=== PATIENT | male | born 1970 | race Caucasian/White ===

== ENCOUNTER 2017-05-22 12:31 | Emergency (ER) | payer OTHER ==
[~2017-05-22] VITALS: Ht 170.2 cm; Wt 78.4 kg
[~2017-05-22 12:31] MED LIST: ADVIL200 MG PO; CEFDINIR300 MG PO; CIPROFLOXACIN H10 ML LEFT EYE; CLINDAMYCIN HC300 MG PO; KEFLEX500 MG PO; NAPROSYN500 MG PO; NORCO 5/3251 TABLET PO; PROVENTIL HFA6.7 GM IH; TAMIFLU75 MG PO; ULTRACET1 TABLET PO
[2017-05-22] MEDS ORDERED: MOTRIN800 MG PO (14:33)
[2017-05-22] MEDS ORDERED: VALIUM5 MG PO (14:34)
[2017-05-22] MEDS ORDERED: NORCO 7.5/321 TABLET PO (14:34)
[2017-05-22 15:26] VITALS: BP 136/88
== END 2017-05-22 15:27 | disposition home or self-care (01) ==
LOC: EME 12:31
DX: S16.1XXA Strain of muscle, fascia and tendon at neck level, initial encounter (principal); S46.202A Unspecified injury of muscle, fascia and tendon of other parts of biceps, left arm, initial encounter; V43.52XA Car driver injured in collision with other type car in traffic accident, initial encounter; Y92.414 Local residential or business street as the place of occurrence of the external cause; M75.92 Shoulder lesion, unspecified, left shoulder; F17.200 Nicotine dependence, unspecified, uncomplicated; Z88.0 Allergy status to penicillin
CPT/HCPCS: 99281; 99283